=== PATIENT | female | born 1955 | race African-American/Black ===

== ENCOUNTER 2019-08-13 10:12 | Emergency (ER) | payer MEDICARE, OTHER ==
[~2019-08-13] VITALS: Ht 165.1 cm; Wt 81.6 kg
[2019-08-13 13:42] VITALS: BP 126/53
== END 2019-08-13 13:46 | disposition home or self-care (01) ==
LOC: ER 10:12
DX: M79.642 Pain in left hand (principal); Z88.5 Allergy status to narcotic agent
CPT/HCPCS: 73130